=== PATIENT | male | born 1975 | race Caucasian/White ===

== ENCOUNTER 2024-04-01 19:05 | Emergency (ER) | payer BC, OTHER ==
[2024-04-01] MEDS ORDERED: Naloxone 2 MG/2 ML Syringe IVPUSH PRN (19:10)
[2024-04-01] MEDS: Ondansetron 4 MG/2 ML SDV IVPUSH ONE (19:15)
[2024-04-01] MEDS: Ketorolac 30 MG/ML SDV IVPUSH ONE (19:16)
[2024-04-01] MEDS: Morphine 4 MG/ML VIAL IVPUSH ONE (19:18)
[2024-04-01] MEDS: Lidocaine 1% with EPINEPHrine 1:100,000 20 ML MDV INJECT ONE (20:25)
[2024-04-01] MEDS: ceFAZolin 2 GM in Sodium Chloride 0.9% 100 ML IV ONE (21:01)
[2024-04-01] MEDS: ceFAZolin 1 GM Vial ONE (21:17)
[2024-04-01] MEDS: Diphtheria,Pertussis(Acell),Tetanus Vaccine 0.5 ML Syringe IM ONE (21:23)
[2024-04-01] MEDS: Lidocaine 1% with EPINEPHrine 1:100,000 50 ML MDV INFILT ONE (21:49)
== END 2024-04-01 22:25 | disposition home or self-care (01) ==
LOC: LB.ED 19:05
DX: S81.842A Puncture wound with foreign body, left lower leg, initial encounter (principal); S81.841A Puncture wound with foreign body, right lower leg, initial encounter; Z23 Encounter for immunization; W33.01XA Accidental discharge of shotgun, initial encounter
CPT/HCPCS: 12001; 73552; 73590; 90471; 90715; 96365; 96375; 99283; J0690; J1885; J2270; J2405; J3490; 10120; 99284